=== PATIENT | female | born 1950 | race Caucasian/White ===

== ENCOUNTER 2019-11-23 07:17 | Emergency (ER) | payer MEDICARE, BC ==
[~2019-11-23] VITALS: Ht 167.6 cm; Wt 75.0 kg
[2019-11-23] MEDS ORDERED: FAMO20TA7 PO (07:35)
[2019-11-23] MEDS ORDERED: TRAZ50TA66 PO (07:35)
[2019-11-23] MEDS ORDERED: METO25TA91 PO (07:35)
[2019-11-23] MEDS ORDERED: ALPR1TAB2 PO (07:35)
[2019-11-23] MEDS ORDERED: BENZ-17 PO (07:35)
[2019-11-23] MEDS ORDERED: ESTR0.5T PO (07:35)
[2019-11-23] MEDS ORDERED: BUPR300T94 PO (07:35)
[2019-11-23] MEDS ORDERED: MORPHINE SULFATE 4 MG/ML, 1ML ONE (07:52)
[2019-11-23] MEDS ORDERED: ONDANSETRON 2MG/ML, 2ML IVPush ONE (08:00)
[2019-11-23] MEDS ORDERED: SODIUM CHLORIDE 0.9% 1,000 ML IV ONE (08:00)
[2019-11-23] MEDS ORDERED: MORPHINE SULFATE 4 MG/ML, 1ML IVPush PRN (08:00)
[2019-11-23 08:03] LABS: MICROSCOPIC INDICATED
[2019-11-23 08:06] LABS: BASOPHILS % (AUTO) 1 % (0-1); EOSINOPHILS % (AUTO) 2 % (1-7); LYMPHOCYTES % (AUTO) 22 % (22-44); MEAN CORPUSCULAR HEMOGLOBIN 30.7 pg (27.0-34.8); MEAN CORPUSCULAR HGB CONC 32.8 g/dL (32.4-35.8); MEAN PLATELET VOLUME 8.5 fL (7.4-10.4); MONOCYTES % (AUTO) 8 % (2-9); NEUTROPHILS % (AUTO) 67 % (42-75); PLATELET COUNT 309 x10^3/uL (130-400); RED CELL DISTRIBUTION WIDTH 13.8 % (9.6-15.2)
[2019-11-23 08:07] LABS: MD NO
[2019-11-23 08:17] LABS: ALANINE AMINOTRANSFERASE 20 U/L (12-78); ALBUMIN 3.9 g/dL (3.4-5.0); ANION GAP 6 mmol/L (5-15); CALCIUM 9.2 mg/dL (8.5-10.1); CHLORIDE 108 mmol/L (98-107); CREATININE 0.75 mg/dL (0.55-1.02)
[2019-11-23 08:20] LABS: ALKALINE PHOSPHATASE 91 U/L (45-117); BILIRUBIN,TOTAL 0.5 mg/dL (0.2-1.0); TOTAL PROTEIN 7.8 g/dL (6.4-8.2)
--- NOTE | 2019-11-23 08:29 | NUR ---
PT REPORTS PAIN IN UNDER CONTROL, FLUIDS GIVEN VSS. AWAITING ENT Addendum: 11/23/19 at [address]
[2019-11-23] MEDS ORDERED: OMNIPAQUE 350 MG/ML, 100ML BOTTLE ONE (09:38)
[2019-11-23 09:48] VITALS: BP 171/102
== END 2019-11-23 09:51 | disposition home or self-care (01) ==
LOC: ED 08:21
DX: R10.32 Left lower quadrant pain (principal); R11.0 Nausea; I44.7 Left bundle-branch block, unspecified; Z86.19 Personal history of other infectious and parasitic diseases; I25.2 Old myocardial infarction; I10 Essential (primary) hypertension; Z90.89 Acquired absence of other organs; Z90.710 Acquired absence of both cervix and uterus
CPT/HCPCS: 36415; 74177; 80053; 81001; 85025; 86850; 86900; 87086; 93005; 96361; 96374; 99285; J2270; J7030; Q9967